=== PATIENT | male | born 1990 | race Hispanic/Latino ===

== ENCOUNTER 2018-01-12 07:49 | Emergency (ER) | payer SELFPAY ==
[2018-01-12 08:18] VITALS: RESP 20
--- NOTE | 2018-01-12 09:03 | C.PDOC ---
History Of Present Illness Patient is a 27 y/o male who presents to the ED c/o bilateral ankle swelling and redness for 5 days. Denies any trauma. Patient reports having a similar episode when previously diagnosed with cellulitis. 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 Denies injecting into legs. Denies fever, sob, chest pain, abdominal pain, headache. Time Seen by Provider: 01/12/18 08:00 Chief Complaint (Nursing): Lower Extremity Problem/Injury History Per: Patient History/Exam Limitations: no limitations Onset/Duration Of Symptoms: Days (5 days) Current Symptoms Are (Timing): Still Present Recent travel outside of the [place]: No Past Medical History Reviewed: Historical Data, Nursing Documentation, Vital Signs Vital Signs: Last Vital Signs Temp 98.8 F 01/12/18 08:00 Pulse 84 01/12/18 08:00 Resp 20 01/12/18 08:00 BP 120/71 01/12/18 08:00 Pulse Ox 100 01/12/18 10:52 - Medical History PMH: No Chronic Diseases Surgical History: No Surg Hx Family History: States: No Known Family Hx - Social History Hx Tobacco Use: Yes (heavy smoker) Hx Alcohol Use: No Hx Substance Use: Yes (heroin) - Immunization History Hx Tetanus Toxoid Vaccination: Yes Hx Influenza Vaccination: No Hx Pneumococcal Vaccination: No Review Of Systems Except As Marked, All Systems Reviewed And Found Negative. Cardiovascular: Positive for: Edema (bilateral ankle swelling) Skin: Positive for: Other (bilateral ankle redness) Physical Exam - Physical Exam Appears: Non-toxic, No Acute Distress, Unkempt Skin: Warm, Dry, Other ((+) track modi b/l arms) Head: Atraumatic, Normacephalic Eye(s): bilateral: Normal Inspection, EOMI Nose: Normal Oral Mucosa: Moist Neck: Normal ROM, Supple Chest: Symmetrical Cardiovascular: Rhythm Regular Respiratory: Normal Breath Sounds, No Decreased Breath Sounds, Other (speaking in full sentences) Gastrointestinal/Abdominal: Soft, No Tenderness Extremity: No Normal ROM, Tenderness, Pedal Edema (bilateral to just above ankle with erythema), No Calf Tenderness, Capillary Refill (< 2 sec) Pulses: Left Dorsalis Pedis: Normal, Right Dorsalis Pedis: Normal Neurological/Psych: Oriented x3, Normal Speech, Normal Motor, Normal Sensation, Other (no focal deficits) ED Course And Treatment - Laboratory Results Result Diagrams: 01/12/18 09:39 01/12/18 09:39 O2 Sat by Pulse Oximetry: 100 Progress Note: Blood work and UA ordered. 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 Outpt f/u given. On reassessment, patient is resting comfortably, and is in no acute distress. Pt was instructed to change socks, shoes, elevate feet and take abx as prescribed. Wound check in 2 days. Case discussed and pt evaluated by Dr Galicia, agreed upon plan, treatment and discharge. Disposition - Disposition Referrals: [facility] and [facility] [Outside] Disposition: HOME/ ROUTINE Disposition Time: 11:09 Condition: STABLE Additional Instructions: Wound check in two days. Call [phone] for detox bed availability. Return to ER if symptoms persist or worsen. Prescriptions: Cephalexin [cephalexin] 500 mg PO QID 7 Days cap Instructions: Cellulitis (Skin Infection), Adult (DC), Drug Abuse and Drug Addiction (DC) Forms: Fanergies ([place]) - Clinical Impression Clinical Impression: Cellulitis, Heroin abuse - Scribe Statement The provider has reviewed the documentation as recorded by the Scribe Aminah Juarez All medical record entries made by the Scribe were at my direction and personally dictated by me. I have reviewed the chart and agree that the record accurately reflects my personal performance of the history, physical exam, medical decision making, and the department course for this patient. I have also personally directed, reviewed, and agree with the discharge instructions and disposition.
[2018-01-12 09:08] LABS: URINE BILIRUBIN NEGATIVE (NEGATIVE); URINE BLOOD NEGATIVE (NEGATIVE); URINE CLARITY Clear (Clear); URINE COLOR Yellow (YELLOW); URINE GLUCOSE (UA) NORMAL (Normal); URINE LEUKOCYTE ESTERASE NEG Leu/uL (Negative); URINE PROTEIN NEGATIVE (NEGATIVE)
[2018-01-12 09:45] LABS: BARBITURATES, UR NEGATIVE (NEGATIVE); BENZODIAZEPINES, UR NEGATIVE (NEGATIVE); PHENCYCLIDINE, UR NEGATIVE (NEGATIVE)
[2018-01-12 09:50] LABS: BASO % 0.6 % (0.0-2.0); EOS # 0.2 K/uL (0.0-0.7); EOS % 4.6 % (0.0-4.0); HEMOGLOBIN 12.9 g/dL (12.0-18.0); LYMPH # 1.3 K/uL (1.0-4.3); MEAN CELL VOLUME 88.5 fL (80.0-94.0); MEAN CORPUSCULAR HEMOGLOBIN 30.2 pg (27.0-31.0); MEAN CORPUSCULAR HGB CONC 34.1 g/dL (33.0-37.0); MEAN PLATELET VOLUME 7.9 fL (7.2-11.7); MONO # 0.5 K/uL (0.0-0.8); MONO % 12.4 % (0.0-10.0); NEUT # 2.3 K/uL (1.8-7.0); NEUT % 52.4 % (50.0-75.0); NRBC % 0.1 % (0.0-2.0); RBC 4.28 Mil/uL (4.40-5.90); WHITE BLOOD COUNT 4.3 K/uL (4.8-10.8)
[2018-01-12 09:51] LABS: OPIATES, UR POSITIVE (NEGATIVE)
[2018-01-12 09:56] LABS: ALT/SGPT 25 U/L (21-72); AST/SGOT 26 U/L (17-59); BLOOD UREA NITROGEN 13 mg/dL (9-20); CALCIUM 8.9 mg/dl (8.6-10.4); GFR AFRICAN-AMERICAN > 60; GFR NON-AFRICAN AMERICAN > 60
[2018-01-12] MEDS ORDERED: Clindamycin 600mg/50ml NS 600 MG/50 ML BAG IVPB ONE (09:57)
[2018-01-12 12:15] VITALS: BP 116/80; PULSE 87; TEMP 98.5
[2018-01-12 17:16] VITALS: O2SAT 100
== END 2018-01-12 12:00 | disposition home or self-care (01) ==
LOC: C.ER 07:49
DX: F11.10 Opioid abuse, uncomplicated (principal); L03.119 Cellulitis of unspecified part of limb; F17.210 Nicotine dependence, cigarettes, uncomplicated
CPT/HCPCS: 80053; 81001; 85025; 96365; 96366; 99284; G0480